=== PATIENT | male | born 1945 | race Caucasian/White ===

== ENCOUNTER 2016-09-24 12:14 | Emergency (ER) | payer MEDICARE, BC ==
[2016-09-24] MEDS ORDERED: IPRATROPIUM/ALBUTEROL (0.5MG/3MG) NEB INH ONE (12:25)
[2016-09-24] MEDS ORDERED: METHYLPREDNISOLONE PF 125MG/VIAL IVP ONE (12:25)
--- NOTE | 2016-09-24 12:36 | Emergency Department Record ---
History of Present Illness - General Chief Complaint: Cough Stated Complaint: PAYTON Time Seen by Provider: 09/24/16 12:25 Source: Patient Mode of Arrival: Ambulatory Limitations: No limitations - History of Present Illness Initial Comments: 71 yo male presents to ED with a CC of sinus congestion that has "gone into his chest" resulting in wheezing, cough, and difficulty breathing. Patient denies fevers, chills, nausea, or vomiting symptoms. Patient does report a history of asthma, and that his symptoms have triggered his asthma. MD Complaint: Cough Onset/Timin -: Week(s) Severity: Moderate Consistency: Intermittent Improves With: Nothing Worsens With: Other (cough) Associated Symptoms: Denies other symptoms Treatments Prior to Arrival: None - Related Data Home Medications Medication Instructions Recorded Confirmed Last Taken Albuterol Sulfate [Proair Hfa] 2 puff IH ASDIR PRN 05/09/14 09/24/16 09/23/16 Atorvastatin Calcium [Lipitor] 20 mg PO QHS 05/09/14 09/24/16 09/23/16 Enalapril Maleate [Vasotec] 10 mg PO DAILY 05/09/14 09/24/16 09/23/16 Fenofibrate Nanocrystallized 1 tab PO DAILY 05/09/14 09/24/16 09/23/16 [Tricor] Magnesium 200 mg PO DAILY 05/09/14 09/24/16 09/23/16 Metformin HCl [Glucophage] 500 mg PO BID 05/09/14 09/24/16 09/23/16 Mometasone/Formoterol [Dulera 100 13 gm IH BID 05/09/14 09/24/16 09/23/16 Mcg/5 Mcg Inhaler] Previous Rx's Medication Instructions Recorded Azithromycin [Zithromax] 250 mg PO DAILY #6 tab 09/24/16 Prednisone [Prednisone 20Mg] 20 mg PO TID #12 tab 09/24/16 Allergies Allergy/AdvReac Type Severity Reaction Status Date / Time No Known Drug Allergies Allergy Verified 09/24/16 12:16 Travel Screening - Travel/Exposure Within Last 30 Days Have you traveled within the last 30 days?: No Review of Systems Constitutional: Denies: Chills, Fever, Malaise, Night sweats Eyes: Denies: Eye discharge, Eye pain ENT: Denies: Congestion, Ear pain, Epistaxis Respiratory: Reports: Cough, Dyspnea, Wheezes Cardiovascular: Denies: Chest pain, Palpitations Endocrine: Denies: Fatigue, Heat or cold intolerance Gastrointestinal: Denies: Abdominal pain, Nausea, Vomiting Genitourinary: Denies: Incontinence, Retention Musculoskeletal: Denies: Arthralgia, Back pain, Gout, Joint swelling Skin: Denies: Bruising, Change in color Neurological: Denies: Abnormal gait, Confusion, Headache, Seizure Psychiatric: Denies: Anxiety Hematological/Lymphatic: Denies: Anemia, Blood Clots Past Medical History - SOCIAL HISTORY Smoking Status: Never smoker Alcohol Use: None Drug Use: None - RESPIRATORY Hx Respiratory Disorders: Yes Hx Asthma: Yes - CARDIOVASCULAR Hx Cardio Disorders: No - NEURO Hx Neuro Disorders: No - GI Hx GI Disorders: No - Hx Genitourinary Disorders: Yes Hx Kidney Stones: Yes Hx Prostate Problems: Yes - ENDOCRINE Hx Endocrine Disorders: Yes Hx Diabetes: Yes - MUSCULOSKELETAL Hx Musculoskeletal Disorders: No - PSYCH Hx Psych Problems: No - HEMATOLOGY/ONCOLOGY Hx Hematology/Oncology Disorders: No Hx Cancer: Yes Hx Chemotherapy: No Hx Radiation Therapy: Yes Family Medical History Any Significant Family History?: No Physical Exam - General General Appearance: Alert, Oriented x3, Cooperative, No acute distress Limitations: No limitations - Head Head exam: Atraumatic, Normocephalic, Normal inspection Head exam detail: negative: Abrasion, Contusion, Brown's sign, General tenderness, Hematoma, Laceration - Eye Eye exam: Normal appearance. negative: Conjunctival injection, Periorbital swelling, Periorbital tenderness, Scleral icterus - ENT Ear exam: negative: Auricular hematoma, Auricular trauma Nasal Exam: negative: Active bleeding, Discharge, Dried blood, Foreign body Mouth exam: negative: Drooling, Laceration, Muffled voice, Tongue elevation - Neck Neck exam: Normal inspection. negative: Meningismus, Tenderness - Respiratory Respiratory exam: Decreased breath sounds. negative: Respiratory distress, Rhonchi, Stridor, Wheezes - Cardiovascular Cardiovascular Exam: Regular rate, Normal rhythm, Normal heart sounds - GI/Abdominal GI/Abdominal exam: Soft. negative: Rebound, Rigid, Tenderness - Rectal Rectal exam: Deferred - exam: Deferred - Extremities Extremities exam: Normal inspection. negative: Calf tenderness, Pedal edema, Tenderness - Back Back exam: Reports: Normal inspection. Denies: CVA tenderness (R), CVA tenderness (L) - Neurological Neurological exam: Alert, Normal gait, Oriented X3 - Psychiatric Psychiatric exam: Normal affect, Normal mood - Skin Skin exam: Normal color. negative: Abrasion Type of lesion: negative: abrasion Course Vital Signs 09/24/16 12:19 Temperature 98.0 F Pulse Rate 94 H Respiratory 20 Rate Blood Pressure 136/76 Pulse Ox 96 - Reevaluation(s) Reevaluation #1: 09/24/16 13:19 Labs reviewed, BUN 26, AG 18, CO2 20. Labs are otherwise grossly unremarkable for an acute process. Reevaluation #2: 09/24/16 13:32 CXR: Nothing acute Patient was updated on all results, reports that he is feeling much better following duoneb and appears stable for discharge at this time. Medical Decision Making - Lab Data Result diagrams: 09/24/16 12:51 09/24/16 12:51 Disposition Disposition: Discharge Clinical Impression: Bronchitis Disposition: Home, Self-Care Condition: (2) Stable Instructions: Acute Bronchitis (ED) Additional Instructions: Return to ED if your symptoms worsen or if you have any concerns. Zithromax and Prednisone as directed. Follow-up with your family doctor in 3-5 days as directed. Prescriptions: Prednisone [Prednisone 20Mg] 20 mg PO TID #12 tab Azithromycin [Zithromax] 250 mg PO DAILY #6 tab Forms: Patient Portal Access Time of Disposition: 13:36
[2016-09-24 13:00] LABS: BASO % 0.5 % (0-6); EOS % 1.3 % (0-6); GRAN % 76.8 % (47-80); HEMATOCRIT 45.6 % (42.0-52.0); HEMOGLOBIN 15.1 gm/dl (14.0-18.0); LYMPH % 13.6 % (16-45); MEAN CELL VOLUME 90.7 fl (81-97); MEAN CORPUSCULAR HGB CONC 33.1 g/dl (32-36); MEAN PLATELET VOLUME 12.5 fl (7.4-10.4); MONO % 7.8 % (0-9); PLATELET COUNT 152 K/uL (130-400); RED BLOOD COUNT 5.03 M/uL (4.40-5.70); RED CELL DISTRIBUTION WIDTH 13.8 % (11.5-14.5); WHITE BLOOD COUNT W/O DIFF 8.5 K/uL (4.2-12.2)
[2016-09-24 13:10] LABS: ALB/GLOB RATIO 1.4 (1.1-1.8); ALBUMIN 4.2 gm/dL (3.5-5.0); ALKALINE PHOSPHATASE 47 U/L (38-126); ALT/SGPT 32 U/L (21-72); ANION GAP 18.1 (7-16); AST/SGOT 24 U/L (17-59); BILIRUBIN,TOTAL 0.62 mg/dL (0.2-1.3); BLOOD UREA NITROGEN 26 mg/dL (9-20); CARBON DIOXIDE 20.9 mmol/L (22-30); EST GLOMERULAR FILTRATION RATE > 60 ml/min; GLUCOSE,RANDOM 266 mg/dL (70-110); TOTAL PROTEIN 7.3 gm/dL (6.3-8.2)
== END 2016-09-24 13:43 | disposition home or self-care (01) ==
LOC: ER 12:14
DX: J20.9 Acute bronchitis, unspecified (principal); R06.00 Dyspnea, unspecified; E11.9 Type 2 diabetes mellitus without complications; Z79.84 Long term (current) use of oral hypoglycemic drugs
CPT/HCPCS: 71020; 80053; 85025; 94640; 96374; 99284; J2930

== ENCOUNTER 2017-04-07 13:40 | Emergency (ER) | payer MEDICARE, BC ==
--- NOTE | 2017-04-07 14:26 | Emergency Department Record ---
History of Present Illness - General Chief complaint: Flank Pain Stated complaint: BACK PAIN/LIGHTHEAD/DRY HEAVES Time Seen by Provider: 04/07/17 14:16 Source: Patient, RN notes reviewed Mode of Arrival: Wheelchair - History of Present Illness Initial comments: right flank pain for four days and nausea and vomiting and history of kidney stones reports he is lightheaded. No chest pain no abdominal pain Onset/Timin -: Days(s) Location: Right flank Severity scale (1-10): 5 Quality: Dull Consistency: Intermittent Improves with: Rest Worsens with: Movement Reports: Nausea/vomiting - Related Data Home Medications Medication Instructions Recorded Confirmed Last Taken Albuterol Sulfate [Proair Hfa] 2 puff IH ASDIR PRN 05/09/14 04/07/17 09/23/16 Atorvastatin Calcium [Lipitor] 20 mg PO QHS 05/09/14 04/07/17 04/05/17 Enalapril Maleate [Vasotec] 10 mg PO DAILY 05/09/14 04/07/17 04/05/17 Fenofibrate Nanocrystallized 1 tab PO DAILY 05/09/14 04/07/17 03/29/17 [Tricor] Magnesium 200 mg PO DAILY 05/09/14 04/07/17 04/06/17 Metformin HCl [Glucophage] 500 mg PO BID 05/09/14 04/07/17 04/07/17 Mometasone/Formoterol [Dulera 100 13 gm IH BID 05/09/14 04/07/17 04/07/17 Mcg/5 Mcg Inhaler] Allergies Allergy/AdvReac Type Severity Reaction Status Date / Time No Known Drug Allergies Allergy Verified 09/24/16 12:16 Travel Screening - Travel/Exposure Within Last 30 Days Have you traveled within the last 30 days?: No - Travel/Exposure Within Last Year Have you traveled outside the [place] in the last year?: No - Additonal Travel Details Have you been exposed to anyone with a communicable illness?: No Review of Systems Reviewed: No additional complaints except as noted below Constitutional: Reports: As per HPI. Denies: Chills, Fever, Malaise, Night sweats, Weakness, Weight change Eyes: Reports: As per HPI. Denies: Eye discharge, Eye pain, Photophobia, Vision change ENT: Reports: As per HPI. Denies: Congestion, Dental pain, Ear pain, Epistaxis , Hearing loss, Throat pain Respiratory: Reports: As per HPI. Denies: Cough, Dyspnea, Hemoptysis, Stridor, Wheezes Cardiovascular: Reports: As per HPI. Denies: Arrhythmia, Chest pain, Dyspnea on exertion, Edema, Murmurs, Orthopnea, Palpitations, Paroxysmal nocturnal dyspnea, Rheumatic Fever, Syncope Endocrine: Reports: As per HPI. Denies: Fatigue, Heat or cold intolerance, Polydipsia, Polyuria Gastrointestinal: Reports: As per HPI. Denies: Abdominal pain, Constipation, Diarrhea, Hematemesis, Hematochezia, Melena, Nausea, Vomiting Genitourinary: Reports: As per HPI. Denies: Dysuria, Frequency, Hematuria, Incontinence, Retention, Testicular pain, Testicular mass, Urgency Musculoskeletal: Reports: As per HPI. Denies: Arthralgia, Back pain, Gout, Joint swelling, Myalgia, Neck pain Skin: Reports: As per HPI. Denies: Bruising, Change in color, Change in hair/ nails, Lesions, Pruritus, Rash Neurological: Reports: As per HPI. Denies: Abnormal gait, Confusion, Headache, Numbness, Paresthesias, Seizure, Tingling, Tremors, Vertigo, Weakness Psychiatric: Reports: As per HPI. Denies: Anxiety, Auditory hallucinations, Depression, Homicidal thoughts, Suicidal thoughts, Visual hallucinations Hematological/Lymphatic: Reports: As per HPI. Denies: Anemia, Blood Clots, Easy bleeding, Easy bruising, Swollen glands Past Medical History - SOCIAL HISTORY Smoking Status: Never smoker Alcohol Use: Rare Drug Use: None - RESPIRATORY Hx Respiratory Disorders: Yes Hx Asthma: Yes - CARDIOVASCULAR Hx Cardio Disorders: No - NEURO Hx Neuro Disorders: Yes Hx Dementia: Yes Hx Parkinson's Disease: Yes (Parkinsonians) - GI Hx GI Disorders: No - Hx Genitourinary Disorders: Yes Hx Kidney Stones: Yes Hx Prostate Problems: Yes - ENDOCRINE Hx Endocrine Disorders: Yes Hx Diabetes: Yes Hx Thyroid Disease: No - MUSCULOSKELETAL Hx Musculoskeletal Disorders: No - PSYCH Hx Psych Problems: No - HEMATOLOGY/ONCOLOGY Hx Hematology/Oncology Disorders: No Hx Cancer: Yes Hx Chemotherapy: No Hx Radiation Therapy: Yes Family Medical History Any Significant Family History?: No Physical Exam - General General Appearance: Alert, Oriented x3, Cooperative, No acute distress - Head Head exam: Normal inspection - Eye Eye exam: Normal appearance, PERRL Pupils: Normal accommodation - ENT ENT exam: Normal exam, Mucous membranes moist, Normal external ear exam, Normal orophraynx, TM's normal bilaterally Ear exam: Normal external inspection. negative: External canal tenderness Nasal Exam: Normal inspection. negative: Discharge, Sinus tenderness Mouth exam: Normal external inspection, Tongue normal Teeth exam: Normal inspection. negative: Dental caries Throat exam: Normal inspection. negative: Tonsillar erythema, Tonsillar exudate - Neck Neck exam: Normal inspection, Full ROM. negative: Tenderness - Respiratory Respiratory exam: Normal lung sounds bilaterally. negative: Respiratory distress - Cardiovascular Cardiovascular Exam: Regular rate, Normal rhythm, Normal heart sounds - GI/Abdominal GI/Abdominal exam: Soft, Normal bowel sounds, Tenderness (right flank pain, no abdominal pain on palpation, right flank pain worse with motion and laying still no pain.) - Rectal Rectal exam: Deferred - exam: Deferred - Extremities Extremities exam: Normal inspection, Full ROM, Normal capillary refill. negative: Tenderness - Back Back exam: Reports: Normal inspection, Full ROM. Denies: Muscle spasm, Rash noted, Tenderness - Neurological Neurological exam: Alert, Normal gait, Oriented X3, Reflexes normal - Psychiatric Psychiatric exam: Normal affect, Normal mood - Skin Skin exam: Dry, Intact, Normal color, Warm Course Vital Signs 04/07/17 13:54 Temperature 98.7 F Pulse Rate 77 Respiratory 18 Rate Blood Pressure 135/86 Pulse Ox 97 Medical Decision Making - Data Complexity MDM Data: Labs Ordered and/or Reviewed, X-Ray Ordered and/or Reviewed (CT of abd and pelvis essentially neg with small splenic anuryism,) - Lab Data Result diagrams: 04/07/17 14:41 04/07/17 14:41 Disposition Clinical Impression: Flank pain, Viral syndrome, Hyperkalemia Disposition: Home, Self-Care Condition: (1) Good Instructions: Low Back Strain (ED), Flank Pain (ED) Additional Instructions: follow up with family in 2-7 days return if worse bland foods today and clear liquids avoid foods with potassium decrease enalapril to 5 mg per day(one half of pill he has) Forms: Patient Portal Access Time of Disposition: 16:09 Quality - Quality Measures Quality Measures: N/A - Blood Pressure Screening Does Patient Have Any of the Following: No Blood Pressure Classification: Pre-Hypertensive BP Reading Systolic Measurement: 135 Diastolic Measurement: 86 Screening for High Blood Pressure: < Pre-Hypertensive BP, F/U Documented > [ [id number]] Pre-Hypertensive Follow-up Interventions: Referral to alternative/primary care provider.
[2017-04-07 14:45] LABS: URINE APPEARANCE SL CLOUDY; URINE BILIRUBIN NEGATIVE (NEGATIVE); URINE BLOOD NEGATIVE (NEGATIVE); URINE COLOR YELLOW; URINE GLUCOSE (UA) NEGATIVE (NEGATIVE); URINE KETONE NEGATIVE (NEGATIVE); URINE LEUKOCYTE ESTERASE NEGATIVE (NEGATIVE); URINE NITRITE NEGATIVE (NEGATIVE); URINE PROTEIN NEGATIVE (NEGATIVE); URINE UROBILINOGEN 0.2 E.U./dL (0.20 - 1.00)
[2017-04-07 14:46] LABS: BASO % 0.4 % (0-6); HEMOGLOBIN 16.9 gm/dl (14.0-18.0); LYMPH % 11.1 % (16-45); MEAN CELL VOLUME 89.9 fl (81-97); MEAN CORPUSCULAR HEMOGLOBIN 29.8 pg (27-33); MEAN CORPUSCULAR HGB CONC 33.1 g/dl (32-36); MEAN PLATELET VOLUME 13.3 fl (7.4-10.4); MONO % 8.5 % (0-9); PLATELET COUNT 141 K/uL (130-400); RED BLOOD COUNT 5.67 M/uL (4.40-5.70)
[2017-04-07 14:57] LABS: ALBUMIN 4.5 gm/dL (3.5-5.0); ALKALINE PHOSPHATASE 52 U/L (38-126); ALT/SGPT 45 U/L (21-72); ANION GAP 12.5 (7-16); AST/SGOT 24 U/L (17-59); BILIRUBIN,TOTAL 0.96 mg/dL (0.2-1.3); BLOOD UREA NITROGEN 38 mg/dL (9-20); CARBON DIOXIDE 24.5 mmol/L (22-30); CREATININE 1.2 mg/dL (0.66-1.25); EST GLOMERULAR FILTRATION RATE > 60 ml/min; GLUCOSE,RANDOM 175 mg/dL (70-110); LIPASE 111 U/L (23-300); TOTAL PROTEIN 7.9 gm/dL (6.3-8.2)
[2017-04-07] MEDS: 0.9 % SODIUM CHLORIDE 1000ML 1,000 ML IV PRN (15:30)
--- NOTE | 2017-04-09 12:38 | CT SCAN REPORT ---
EXAM: CT SCAN OF THE ABDOMEN AND PELVIS HISTORY: PATIENT HAS RIGHT LOWER QUADRANT ABDOMINAL PAIN. TECHNIQUE: Serial axial CT scan of the abdomen and pelvis was performed at 3.75 mm intervals from the dome of the diaphragm down to the pubic symphysis without the use of intravenous or oral contrast. No comparison CT's are available. FINDINGS: Lung windows of the lung bases demonstrate linear subsegmental atelectasis and/or scarring at the bilateral lung bases. The visualized heart size and contour is within normal limits. The liver, spleen, pancreas, bilateral adrenal glands, and gallbladder are unremarkable. The bilateral kidneys demonstrate no CT evidence of hydronephrosis or hydroureter. No renal or ureteral calculi are noted. A simple cyst is noted within the inferior pole of the right kidney. The contour and caliber of the abdominal aorta is within normal limits. There is no CT evidence of retroperitoneal, pelvic, or inguinal lymphadenopathy. The bowel gas pattern is nonspecific and nonobstructive. Occasional colonic diverticula are noted without CT evidence of diverticulitis. The appendix is clearly visualized and there is no CT evidence of appendicitis. There is no CT evidence of free intraperitoneal fluid or free intraperitoneal air. There is a 2.1 cm fat containing umbilical hernia with herniated omental fat. The urinary bladder is unremarkable. The prostate is unremarkable. Fat containing bilateral indirect inguinal hernias are identified. Bone windows demonstrate no CT evidence of a fracture or dislocation of the visualized osseous structures of the abdomen and pelvis. There is a 1.8 cm calcified density identified adjacent to the splenic hilum. I suspect this finding likely represents a small pseudoaneurysm. IMPRESSION: 1. MILD DIFFUSE HEPATIC STEATOSIS. 2. SMALL SPLENIC PSEUDOANEURYSM. 3. NO CT EVIDENCE OF AN ACUTE INTRAABDOMINAL PROCESS. 4. FAT CONTAINING BILATERAL INDIRECT INGUINAL HERNIAS. JOB NUMBER: [id number] MTDD
== END 2017-04-07 17:07 | disposition home or self-care (01) ==
LOC: ER 13:40
DX: R10.31 Right lower quadrant pain (principal); E87.5 Hyperkalemia; B34.9 Viral infection, unspecified; R11.2 Nausea with vomiting, unspecified; R42 Dizziness and giddiness; Z87.442 Personal history of urinary calculi
CPT/HCPCS: 74176; 80048; 80076; 81003; 83690; 84550; 85025; 96360; 96361; 99284

== ENCOUNTER 2017-06-03 09:01 | Day surgery (SDC) | payer MEDICARE, BC ==
--- NOTE | 2017-06-03 13:20 | Operative Note ---
DATE OF SURGERY: 06/03/2017 OPERATION: COLONOSCOPY to the cecum with cold biopsy forceps polypectomy x1, cold snare polypectomy x10, and electrocautery snare polypectomy x1. INDICATION: History of adenomatous polyps in the past. The patient presents at this time for surveillance. His last examination was by another physician in 2009. ANESTHESIA: Intravenous sedation was administered by the department of anesthesiology and included Diprivan titrated to effect. PROCEDURE: Following informed consent from this alert individual including a discussion of the risks and benefits of the procedure and an opportunity for the patient to ask questions, the patient was in the left lateral decubitus position. A digital rectal examination was performed. No abnormalities were noted. Following this, the Olympus [id number] video colonoscope was inserted into the rectum without resistance. The rectal mucosa had a normal appearance with normal folds and distensibility. The colonoscope was advanced up to the cecum without much difficulty. The colon preparation was good. The cecum was defined by noting the appendiceal orifice and ileocecal valve. There were multiple polyps noted in both antegrade and retrograde inspection. There was a cecal polyp measuring 4-5 mm in size that was removed with cold snare polypectomy. There were 2 ascending colon polyps; 1 diminutive in size measuring 3 mm removed with biopsy forceps and a larger 5-6 mm polyp removed with cold snare polypectomy. There were 3 descending colon polyps; 1 larger polyp measuring approximately 9 mm in size removed with cautery snare and 2 smaller polyps measuring 5-6 mm in size removed with cold snare polypectomy. At the hot snare site, there was a white eschar with no bleeding. There was a total of 5 sigmoid colon polyps all measuring between 5-6 mm in size removed with cold snare polypectomy and a rectal polyp also measuring 5 mm in size removed with cold snare polypectomy. All polyps were suctioned through the endoscope into a collection trap. Also noted was a solitary diverticulum in the sigmoid region. Retroflexion in the rectum revealed internal hemorrhoids which were small to moderate in size. IMPRESSION: 1. A total of 12 polyps removed as described above ranging in size from 3-9 mm in size throughout the colon as noted above. 2. Diverticulosis. 3. [id number] size internal hemorrhoids. RECOMMENDATIONS: Further recommendations will be forthcoming pending results of pathology obtained today. The patient will most likely require recheck colonoscopy in 3 years' time of sooner if problems arise. Followup will also be with Dr. Joanne Dinero. As always, thank you for allowing me to participate in the care of your patient. CC: Dr. Joanne ARENAS
[2017-06-03] MEDS ORDERED: LIDOCAINE 2% MDV (20MG/ML) 20ML VIAL IV ONE (15:56)
[2017-06-03] MEDS ORDERED: PROPOFOL 10 MG/ML VIAL IV ONE (15:56)
== END 2017-06-03 11:20 | disposition home or self-care (01) ==
LOC: HOP 09:01
PROVIDERS: ATTEND Internal Medicine Gastroenterology
DX: Z12.11 Encounter for screening for malignant neoplasm of colon (principal); Z86.010 Personal history of colon polyps; D12.0 Benign neoplasm of cecum; D12.2 Benign neoplasm of ascending colon; D12.4 Benign neoplasm of descending colon; D12.5 Benign neoplasm of sigmoid colon; K62.1 Rectal polyp; K57.30 Diverticulosis of large intestine without perforation or abscess without bleeding; K64.8 Other hemorrhoids; E78.00 Pure hypercholesterolemia, unspecified; E11.9 Type 2 diabetes mellitus without complications; Z79.4 Long term (current) use of insulin; J45.909 Unspecified asthma, uncomplicated